=== PATIENT | female | born 1985 | race Caucasian/White ===

== ENCOUNTER 2020-10-27 05:33 | Inpatient (IN) | payer MEDICAID, OTHER ==
[2020-10-27] MEDS ORDERED: Citric Acid/Sodium Citrate Solution 30 ML Cup PO ONE (06:14)
[2020-10-27] MEDS ORDERED: Sodium Chloride 0.9% 10 ML Syringe FLUSH PRN (06:14)
[2020-10-27] MEDS ORDERED: Sodium Chloride 0.9% 10 ML SDV IV PRN (06:14)
[2020-10-27] MEDS ORDERED: Sodium Chloride 0.9% 2.5 ML Syringe FLUSH PRN (06:14)
[2020-10-27] MEDS ORDERED: ceFAZolin 2 GM in Premix Bag 1 BAG IV ONE (06:14)
[2020-10-27] MEDS ORDERED: Oxytocin/0.9 % Sodium Chloride 30 UNIT/500 ML BAG IV SCH (06:15)
[2020-10-27] MEDS ORDERED: Dexamethasone 4 MG/ML 5 ML MDV ONE (06:52)
[2020-10-27] MEDS ORDERED: Ondansetron 4 MG/2 ML SDV ONE (06:52)
[2020-10-27] MEDS ORDERED: Ketorolac 30 MG/ML SDV ONE (06:52)
[2020-10-27] MEDS ORDERED: Phenylephrine 1% 10 MG/ML SDV ONE (06:53)
[2020-10-27] MEDS ORDERED: Morphine PF 10 MG/10 ML SDV ONE (06:57)
[2020-10-27] MEDS: Lactated Ringers 1,000 ML IV SCH ×2 (07:10→07:34)
--- NOTE | 2020-10-27 07:31 | PCM.PREANE ---
Preanesthetic Assessment - Procedure Proposed Procedure: repeat c-sec - Anesthesia/Transfusion/Family Hx Anesthesia History: Prior Anesthesia Without Reaction Family History of Anesthesia Reaction: No Transfusion History: No Prior Transfusion(s) - Review of Systems General: No Symptoms Pulmonary: No Symptoms Cardiovascular: No Symptoms Gastrointestinal: No Symptoms Neurological: No Symptoms Other: Reports: None - Physical Assessment NPO Status Date: 10/26/20 NPO Status Time: 23:00 Height: 5 ft 3 in Weight: 75.296 kg ASA Class: 2 Mental Status: Alert & Oriented x3 Airway Class: Mallampati = 1 Dentition: Reports: Normal Dentition Thyro-Mental Finger Breadths: 3 Mouth Opening Finger Breadths: 3 ROM/Head Extension: Full Lungs: Clear to Auscultation, Normal Respiratory Effort Cardiovascular: Regular Rate, Regular Rhythm - Lab Values: Laboratory Last Values WBC 10.87 K/uL (4.0-11.0) 10/27/20 06:15 RBC 3.66 M/uL (4.30-5.90) L 10/27/20 06:15 Hgb 11.8 g/dL (12.0-16.0) L 10/27/20 06:15 Hct 35.2 % (36.0-46.0) L 10/27/20 06:15 MCV 96.2 fL (80.0-98.0) 10/27/20 06:15 MCH 32.2 pg (27.0-32.0) H 10/27/20 06:15 MCHC 33.5 g/dL (31.0-37.0) 10/27/20 06:15 RDW Std Deviation 44.6 fl (28.0-62.0) 10/27/20 06:15 RDW Coeff of Darrin 13 % (11.0-15.0) 10/27/20 06:15 Plt Count 251 K/uL (150-400) 10/27/20 06:15 MPV 10.50 fL (7.40-12.00) 10/27/20 06:15 Nucleated RBC % 0.0 /100WBC 10/27/20 06:15 Nucleated RBCs # 0 K/uL 10/27/20 06:15 Blood Type O POSITIVE 10/27/20 06:15 Antibody Screen NEGATIVE 10/27/20 06:15 - Allergies Allergies/Adverse Reactions: Allergies Allergy/AdvReac Type Severity Reaction Status Date / Time No Known Allergies Allergy Verified 10/24/20 14:15 - Blood Blood Available: Yes Product(s) Available: PRBC - Anesthesia Plan Pre-Op Medication Ordered: Antacids - Acknowledgements Anesthesia Type Planned: Spinal Pt an Appropriate Candidate for the Planned Anesthesia: Yes Alternatives and Risks of Anesthesia Discussed w Pt/Guardian: Yes Pt/Guardian Understands and Agrees with Anesthesia Plan: Yes PreAnesthesia Questionnaire HEENT History: Reports: None Cardiovascular History: Reports: None Respiratory History: Reports: Asthma Gastrointestinal History: Reports: Other (See Below) Other Gastrointestinal History: heartburn during Genitourinary History: Reports: None 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: Musculoskeletal History: Reports: None Neurological History: Reports: None Psychiatric History: Reports: None Endocrine/Metabolic History: Reports: None Hematologic History: Reports: None Immunologic History: Reports: None Oncologic (Cancer) History: Reports: None Dermatologic History: Reports: None - Past Surgical History Head Surgeries/Procedures: Reports: None HEENT Surgical History: Reports: None Cardiovascular Surgical History: Reports: None Respiratory Surgical History: Reports: None GI Surgical History: Reports: None Female Surgical History: Reports: Section Endocrine Surgical History: Reports: None Neurological Surgical History: Reports: None Musculoskeletal Surgical History: Reports: None Oncologic Surgical History: Reports: None Dermatological Surgical History: Reports: None - SUBSTANCE USE Tobacco Use Status *Q: Former Tobacco User Tobacco Use Within Last Twelve Months: No Second Hand Smoke Exposure: No Recreational Drug Use History: No - HOME MEDS Home Medications: Home Meds Albuterol [Take Home: Albuterol 18 GM, 1 INH Pack] 1 - 2 puff INH ASDIRECTED PRN 10/24/20 [History] Calcium Carbonate [Tums] 1 tab.chew CHEW ASDIRECTED PRN 10/24/20 [History] - CURRENT (IN HOUSE) MEDS Current Meds: Current Medications Oxytocin/Sodium Chloride (Oxytocin 30 Unit/500 Ml-Ns) 30 unit in 500 mls @ 250 mls/hr IV TITRATE [facility] Lactated Ringer's (Ringers, Lactated) 1,000 mls @ 500 mls/hr IV BOLUS [facility] Sodium Chloride (Saline Flush) 10 ml FLUSH ASDIRECTED PRN PRN Reason: Keep Vein Open Sodium Chloride (Saline Flush) 2.5 ml FLUSH ASDIRECTED PRN PRN Reason: Keep Vein Open Sodium Chloride (Normal Saline) 10 ml IV ASDIRECTED PRN PRN Reason: IV Use Discontinued Medications Citric Acid/Sodium Citrate (Bicitra Solution) 30 ml PO ONETIME ONE Stop: 10/27/20 06:15 Dexamethasone (Dexamethasone) Confirm Administered Dose 20 mg .ROUTE .STK-MED ONE Stop: 10/27/20 06:53 Cefazolin Sodium/Dextrose 2 gm (/ Premix) 50 mls @ 100 mls/hr IV ONETIME ONE Stop: 10/27/20 06:43 Ketorolac Tromethamine (Toradol) Confirm Administered Dose 30 mg .ROUTE .STK-MED ONE Stop: 10/27/20 06:53 Lidocaine HCl (Xylocaine-Mpf 1%) Confirm Administered Dose 5 ml .ROUTE .STK-MED ONE Stop: 10/27/20 07:04 Morphine Sulfate (Duramorph Pf) Confirm Administered Dose 10 mg .ROUTE .STK-MED ONE Stop: 10/27/20 06:58 Ondansetron HCl (Zofran) Confirm Administered Dose 4 mg .ROUTE .STK-MED ONE Stop: 10/27/20 06:53 Phenylephrine HCl (Geoffrey-Synephrine) Confirm Administered Dose 10 mg .ROUTE .STK- MED ONE Stop: 10/27/20 06:54
[2020-10-27] MEDS ORDERED: diphenhydrAMINE 50 MG/ML SDV IVPUSH PRN ×2 (07:32→09:13)
[2020-10-27] MEDS ORDERED: Naloxone 0.4 MG/ML Syringe IVPUSH PRN (07:32)
[2020-10-27] MEDS ORDERED: Nalbuphine 10 MG/1 ML Vial IVPUSH PRN (07:32)
[2020-10-27] MEDS ORDERED: Acetaminophen/oxyCODONE 325-5 MG Tab PO PRN ×3 (07:35→09:13)
[2020-10-27] MEDS ORDERED: fentaNYL 100 MCG/2 ML SDV IVPUSH PRN (09:06)
[2020-10-27] MEDS ORDERED: Bisacodyl 10 MG Supp RECTAL PRN (09:13)
[2020-10-27] MEDS ORDERED: Lanolin 100% Cream 7 GM Tube TOP PRN (09:13)
[2020-10-27] MEDS ORDERED: Tranexamic Acid 1,000 MG in Sodium Chloride 0.9% 100 ML IV PRN (09:13)
[2020-10-27] MEDS ORDERED: Ondansetron 4 MG/2 ML SDV IVPUSH PRN (09:13)
[2020-10-27] MEDS ORDERED: Oxytocin 10 Units/1 ML SDV IM PRN (09:13)
[2020-10-27] MEDS ORDERED: Methylergonovine 0.2 MG/1 ML Amp IM PRN (09:13)
[2020-10-27] MEDS ORDERED: Misoprostol 200 MCG Tab RECTAL PRN (09:13)
[2020-10-27] MEDS ORDERED: Lactated Ringers 1,000 ML IV SCH (09:15)
--- NOTE | 2020-10-27 09:26 | PCM.OPNOTE ---
- General Post-Op/Procedure Note Date of Surgery/Procedure: 10/27/20 Operative Procedure(s): 1. Gluteal skin tag removal. 2. Repeat lower transverse section Findings: Normal appearing male infant in cephalic presentation. Clear amniotic fluid. APGARs 8/9. Weight 3310 grams. Normal appearing uterus, fallopian tubes and ovaries. Three ~2mm flesh colored skin tags in right gluteal fold. One 3mm flesh colored skin tag in left gluteal fold. Pre Op Diagnosis: 1. TIUP at 39w1d. 2. Previous section x2. 3. Advanced maternal age. 4. Gluteal skin tags. 5. Asthma Post-Op Diagnosis: 1. TIUP at 39w1d. 2. Previous section x2. 3. Advanced maternal age. 4. Gluteal skin tags. 5. Asthma Anesthesia Technique: Spinal Primary Surgeon: Nohemy Limon Auto Cleaner: Damian Meier Pathology: Gluteal skin tags x4 Fluid Replacement, Intraop: 1,200 Output, Urine Amount: 100 (clear urine at end of procedure) EBL in mLs: 500 Complications: None known Condition: Good Free Text/Narrative:: Dictation #[id number]
--- NOTE | 2020-10-27 09:46 | PCM.POSTAN ---
POST ANESTHESIA ASSESSMENT - MENTAL STATUS Mental Status: Alert, Oriented - RESPIRATORY Respiratory Status: Respiratory Rate WNL, Airway Patent, O2 Saturation Stable - CARDIOVASCULAR CV Status: Pulse Rate WNL, Blood Pressure Stable - GASTROINTESTINAL GI Status: No Symptoms - PAIN Pain Score: 0 - POST OP HYDRATION Hydration Status: Adequate & Stable
[2020-10-27] MEDS: Ketorolac 30 MG/ML SDV IVPUSH SCH ×3 (16:35→22:11)
[2020-10-27] MEDS: Docusate Sodium 100 MG Cap PO SCH (22:13)
--- NOTE | 2020-10-27 22:46 | OR ---
SURGEON: NOHEMY HANKINS MD DATE OF PROCEDURE: 10/27/2020 PREOPERATIVE DIAGNOSES: 1. Term intrauterine at 39 weeks and 1 day gestation. 2. Previous section x2. 3. Advanced maternal age. 4. Gluteal skin tags. 5. Asthma. POSTOPERATIVE DIAGNOSES: 1. Term intrauterine at 39 weeks and 1 day gestation. 2. Previous section x2. 3. Advanced maternal age. 4. Gluteal skin tags. 5. Asthma. PROCEDURE PERFORMED: 1. Gluteal skin tag removal. 2. Repeat lower transverse section. PRIMARY SURGEON: Nohemy Hankins MD EDGE STAINER: Dr. Damian Meier. ANESTHESIA: Spinal-epidural. COMPLICATIONS: None known. ESTIMATED BLOOD LOSS: 500 mL. INTRAVENOUS FLUIDS: 1200 mL of crystalloid. URINE OUTPUT: 100 mL of clear urine at the end of procedure. INDICATIONS: A 35-year-old 6, para 2-0-3-2 at 39 weeks and 1 day gestation with previous section x2. FINDINGS: A normal-appearing male , cephalic presentation, and clear amniotic fluid. scores of 8 and 9. Weight 2310 g. Normal-appearing uterus, fallopian tubes, and ovaries. Three approximately 2 mm flesh-colored skin tags within the right gluteal fold. One 3 mm flesh-colored skin tag in the left gluteal fold. DESCRIPTION OF PROCEDURE: The patient was taken to the operating room where epidural anesthesia was found to be adequate. She was then placed in the dorsal supine position with a leftward tilt. Her legs were then frog-legged and her gluteal region was then prepped with Betadine. Approximately 5 mL of 1% lidocaine with epinephrine was injected beneath the right and left gluteal skin tags. An 11 blade was then used to remove the skin tags at the skin surface. Hemostasis was achieved with silver nitrate. The skin tags were sent off to pathology. A Juárez catheter was then placed, and her legs were straightened. She was then prepped and draped in the normal sterile fashion. A skin incision was made with scalpel and carried out to the underlying layer of fascia, which was incised in the midline. Fascial incision was then extended laterally with Garcia scissors bilaterally. The superior aspect of the fascial incision was then grasped with Jackie clamps, elevated, and dissected off the rectus muscles with Mayos. The inferior aspect of the fascial incision was then grasped with Kochers and in a likewise manner was elevated and dissected off with Mayoancelmo. The peritoneum was then entered digitally and extended with good visualization of bladder. The Carlos O was then inserted without difficulty. Vesicouterine peritoneum was identified, grasped with pickups, and entered sharply with Metzenbaum scissors. The bladder flap was then created digitally. Uterine incision was then created in a transverse fashion in the lower uterine segment with a scalpel and extended digitally. The amniotic sac was AROM'd with an Allis clamp. Clear fluid was then noted. Infant's head delivered atraumatically. Nose and mouth suctioned with bulb. After one minute, cord was clamped and cut. Handed off to waiting nursing staff. Arterial, venous, and cord blood gases were then obtained. The placenta was then expressed and the uterus exteriorized, and the abdomen cleared of all clots and debris. The uterine incision was then repaired in a running locked fashion with 0 Monocryl. Excellent hemostasis was noted. The uterus was then returned to the abdomen. Gutters cleared of all clots and debris. The peritoneum was then closed in a running fashion with 3-0 Vicryl. The fascia was then closed with 0 Vicryl in a running fashion. The incision was irrigated. Hemostasis assured. The skin was closed with 3-0 Vicryl on a Gilberto needle. Sponge, lap, and needle count were correct x2. Prophylactic antibiotics were given prior to procedure. Patient tolerated the procedure well and was taken to the room for recovery in stable condition. EDILSON / DELBERT /[id number] JORDON
[2020-10-28] MEDS: Ketorolac 30 MG/ML SDV IVPUSH SCH ×2 (03:42→09:45)
[2020-10-28] MEDS ORDERED: diphenhydrAMINE 50 MG/ML SDV IVPUSH PRN (07:35)
[2020-10-28] MEDS: Acetaminophen/oxyCODONE 325-5 MG Tab PO PRN ×3 (09:44→19:37)
[2020-10-28] MEDS: Docusate Sodium 100 MG Cap PO SCH ×3 (09:44→20:32)
--- NOTE | 2020-10-28 11:22 | PCM.PNPP ---
- General Info Date of Service: 10/28/20 Subjective Update: 35yo P3 s/p tertiary , PPD 1 , she denies any complains she is ambulating , voiding and tolerating regular diet Dressing was soaked but stable and not spreading h/h : Functional Status: Reports: Pain Controlled, Tolerating Diet, Ambulating, Incentive Spirometry - Review of Systems General: Reports: No Symptoms, Malaise HEENT: Reports: No Symptoms Pulmonary: Reports: No Symptoms Cardiovascular: Reports: No Symptoms Gastrointestinal: Reports: No Symptoms Genitourinary: Reports: No Symptoms Musculoskeletal: Reports: No Symptoms Skin: Reports: No Symptoms Neurological: Reports: No Symptoms Psychiatric: Reports: No Symptoms - General Info Date of Service: 10/28/20 - Patient Data Vital Signs - Most Recent: Last Vital Signs Temp 36.1 C 10/28/20 07:47 Pulse 83 10/28/20 07:47 Resp 17 10/28/20 07:47 BP 114/56 L 10/28/20 07:47 Pulse Ox 96 10/28/20 07:47 Weight - Most Recent: 75.296 kg I&O - Last 24 Hours: Intake & Output 10/27/20 10/28/20 10/28/20 22:59 06:59 14:59 Intake Total 900 Output Total 700 700 Balance -700 200 Lab Results - Last 24 Hours: Laboratory Results - last 24 hr 10/28/20 Range/Units 06:33 Hgb 9.5 L (12.0-16.0) g/dL Hct 28.4 L (36.0-46.0) % Med Orders - Current: Current Medications Bisacodyl (Dulcolax) 10 mg RECTAL ONETIME PRN PRN Reason: Constipation Diphenhydramine HCl (Benadryl) 25 mg IVPUSH Q6H PRN PRN Reason: Itching or Nausea Docusate Sodium (Colace) 100 mg PO BID [facility] Last Admin: 10/28/20 09:44 Dose: 100 mg Documented by: Emollient Ointment (Lansinoh Hpa) 0 gm TOP ASDIRECTED PRN PRN Reason: Sore Nipples Fentanyl (Sublimaze) 25 mcg IVPUSH Q30M PRN PRN Reason: Pain Oxytocin/Sodium Chloride (Oxytocin 30 Unit/500 Ml-Ns) 30 unit in 500 mls @ 250 mls/hr IV TITRATE [facility] Lactated Ringer's (Ringers, Lactated) 1,000 mls @ 500 mls/hr IV BOLUS [facility] Last Admin: 10/27/20 07:34 Dose: 999 mls/hr Documented by: Lactated Ringer's (Ringers, Lactated) 1,000 mls @ 125 mls/hr IV ASDIRECTED [facility] Last Admin: 10/27/20 10:07 Dose: 125 mls/hr Documented by: Tranexamic Acid 1,000 mg/ (Sodium Chloride) 110 mls @ 660 mls/hr IV ONETIME PRN PRN Reason: Bleeding Ibuprofen (Motrin) 800 mg PO Q8H PRN PRN Reason: mild pain or fever Methylergonovine Maleate (Methergine) 0.2 mg IM ONETIME PRN PRN Reason: Excessive Vaginal Bleeding Misoprostol (Cytotec) 1,000 mcg RECTAL ONETIME PRN PRN Reason: excessive bleeding Ondansetron HCl (Zofran) 4 mg IVPUSH Q4H PRN PRN Reason: Nausea/Vomiting Oxycodone/Acetaminophen (Percocet 325-5 Mg) 1 tab PO Q4H PRN PRN Reason: Pain (moderate 4-6) Last Admin: 10/28/20 09:44 Dose: 1 tab Documented by: Oxycodone/Acetaminophen (Percocet 325-5 Mg) 2 tab PO Q4H PRN PRN Reason: Pain (severe 7-10) Oxytocin (Pitocin) 10 unit IM ASDIRECTED PRN PRN Reason: Excessive Vaginal Bleeding Sodium Chloride (Saline Flush) 10 ml FLUSH ASDIRECTED PRN PRN Reason: Keep Vein Open Sodium Chloride (Saline Flush) 2.5 ml FLUSH ASDIRECTED PRN PRN Reason: Keep Vein Open Sodium Chloride (Normal Saline) 10 ml IV ASDIRECTED PRN PRN Reason: IV Use Discontinued Medications Citric Acid/Sodium Citrate (Bicitra Solution) 30 ml PO ONETIME ONE Stop: 10/27/20 06:15 Last Admin: 10/27/20 07:48 Dose: 30 ml Documented by: Dexamethasone (Dexamethasone) Confirm Administered Dose 20 mg .ROUTE .STK-MED ONE Stop: 10/27/20 06:53 Diphenhydramine HCl (Benadryl) 25 mg IVPUSH Q4H PRN PRN Reason: Itching Stop: 10/28/20 07:34 Last Admin: 10/27/20 12:05 Dose: 25 mg Documented by: Diphenhydramine HCl (Benadryl) 25 mg IVPUSH Q6H PRN PRN Reason: Itching or Nausea Cefazolin Sodium/Dextrose 2 gm (/ Premix) 50 mls @ 100 mls/hr IV ONETIME ONE Stop: 10/27/20 06:43 Last Admin: 10/27/20 17:46 Dose: Not Given Documented by: Cefazolin Sodium/Dextrose (Ancef 1 Gm/50 Ml) Confirm Administered Dose 100 mls @ as directed .ROUTE .STK-MED ONE Stop: 10/27/20 07:52 Ketorolac Tromethamine (Toradol) Confirm Administered Dose 30 mg .ROUTE .STK-MED ONE Stop: 10/27/20 06:53 Ketorolac Tromethamine (Toradol) 30 mg IVPUSH Q6H [facility]NET[facility] Stop: 10/28/20 09:16 Last Admin: 10/28/20 09:45 Dose: 30 mg Documented by: Lidocaine HCl (Xylocaine-Mpf 1%) Confirm Administered Dose 5 ml .ROUTE .STK-MED ONE Stop: 10/27/20 07:04 Morphine Sulfate (Duramorph Pf) Confirm Administered Dose 10 mg .ROUTE .STK-MED ONE Stop: 10/27/20 06:58 Nalbuphine HCl (Nubain) 5 mg IVPUSH Q3H PRN PRN Reason: Pruritis Stop: 10/28/20 07:34 Last Admin: 10/27/20 23:59 Dose: 5 mg Documented by: Naloxone HCl (Narcan) 0.1 mg IVPUSH ONETIME PRN PRN Reason: Other Stop: 10/28/20 07:34 Ondansetron HCl (Zofran) Confirm Administered Dose 4 mg .ROUTE .STK-MED ONE Stop: 10/27/20 06:53 Oxycodone/Acetaminophen (Percocet 325-5 Mg) 1 - 2 tab PO Q6H PRN PRN Reason: Pain Stop: 10/29/20 14:00 Oxycodone/Acetaminophen (Percocet 325-5 Mg) 1 tab PO Q4H PRN PRN Reason: Pain (moderate 4-6) Oxycodone/Acetaminophen (Percocet 325-5 Mg) 2 tab PO Q4H PRN PRN Reason: Pain (moderate 4-6) Phenylephrine HCl (Geoffrey-Synephrine) Confirm Administered Dose 10 mg .ROUTE .STK- MED ONE Stop: 10/27/20 06:54 - Interaction Infant Disposition, : Sar[place] in Room with Family Feeding: Continues to Breastfeed Support Person: Significant Other - Recovery Exam Fundal Tone: Firm Fundal Level: 2 Fingerbreadths Below Umbilicus Fundal Placement: Midline Lochia Amount: Scant Lochia Color: Rubra/Red Bladder Status: Indwelling Catheter in Place Urinary Elimination: Indwelling Catheter - Exam General: Alert HEENT: Pupils Equal Neck: Supple Lungs: Clear to Auscultation Cardiovascular: Regular Rate, Regular Rhythm GI/Abdominal Exam: Normal Bowel Sounds Wound/Incisions: Dressing Dry and Intact (Dry but has some markings which is stable ) - Problem List & Annotations (1) delivery delivered SNOMED Code(s): 381269355 Code(s): O82 - ENCOUNTER FOR DELIVERY WITHOUT INDICATION Status: Acute Current Visit: Yes - Problem List Review Problem List Initiated/Reviewed/Updated: Yes - Assessment Assessment:: 35yo P3 s/p PPD 1 , stable , Anemia , VSS - stable - Plan Plan:: Routine care Pain control as needed Incentive spirometry [place] Iron for anemia Discharge home today
--- NOTE | 2020-10-28 11:43 | PCM48HPAN ---
Post Anesthesia Note - EVALUATION WITHIN 48HRS OF ANESTHETIC Vital Signs in Normal Range: Yes Patient Participated in Evaluation: Yes Respiratory Function Stable: Yes Airway Patent: Yes Cardiovascular Function Stable: Yes Hydration Status Stable: Yes Pain Control Satisfactory: Yes (Some soreness. Alangesics adequate.) Nausea and Vomiting Control Satisfactory: Yes Mental Status Recovered: Yes Vital Signs: Last Vital Signs Temp 36.1 C 10/28/20 07:47 Pulse 83 10/28/20 07:47 Resp 17 10/28/20 07:47 BP 114/56 L 10/28/20 07:47 Pulse Ox 96 10/28/20 07:47 - COMMENTS/OBSERVATIONS Free Text/Narrative:: Doing well.
[2020-10-28] MEDS: Iron Polysaccharides Complex 150 MG Cap PO SCH (15:55)
[2020-10-28] MEDS: Ibuprofen 800 MG Tab PO PRN (17:48)
[2020-10-29] MEDS: Ibuprofen 800 MG Tab PO PRN ×2 (00:58→11:54)
[2020-10-29] MEDS: Acetaminophen/oxyCODONE 325-5 MG Tab PO PRN ×3 (04:03→14:29)
[2020-10-29] MEDS: Docusate Sodium 100 MG Cap PO SCH ×2 (09:16→09:22)
[2020-10-29] MEDS: Iron Polysaccharides Complex 150 MG Cap PO SCH (09:16)
--- NOTE | 2020-10-29 09:24 | PCM.PNPP ---
- General Info Date of Service: 10/29/20 Subjective Update: 35yo P3 s/p tertiary , PPD 2 , she denies any complains she is ambulating , voiding and tolerating regular diet h/h : Functional Status: Reports: Pain Controlled, Tolerating Diet, Ambulating, Urinating - Review of Systems General: Reports: No Symptoms HEENT: Reports: No Symptoms Pulmonary: Reports: No Symptoms Cardiovascular: Reports: No Symptoms Gastrointestinal: Reports: No Symptoms Genitourinary: Reports: No Symptoms Musculoskeletal: Reports: No Symptoms Skin: Reports: No Symptoms Neurological: Reports: No Symptoms Psychiatric: Reports: No Symptoms - General Info Date of Service: 10/29/20 - Patient Data Vital Signs - Most Recent: Last Vital Signs Temp 36.6 C 10/29/20 08:54 Pulse 71 10/29/20 08:54 Resp 18 10/29/20 08:54 BP 117/74 10/29/20 08:54 Pulse Ox 98 10/29/20 08:54 Weight - Most Recent: 75.296 kg Med Orders - Current: Current Medications Bisacodyl (Dulcolax) 10 mg RECTAL ONETIME PRN PRN Reason: Constipation Diphenhydramine HCl (Benadryl) 25 mg IVPUSH Q6H PRN PRN Reason: Itching or Nausea Docusate Sodium (Colace) 100 mg PO BID [facility] Last Admin: 10/29/20 09:16 Dose: 100 mg Documented by: Docusate Sodium (Colace) 100 mg PO DAILY [facility] Last Admin: 10/29/20 09:22 Dose: Not Given Documented by: Emollient Ointment (Lansinoh Hpa) 0 gm TOP ASDIRECTED PRN PRN Reason: Sore Nipples Fentanyl (Sublimaze) 25 mcg IVPUSH Q30M PRN PRN Reason: Pain Oxytocin/Sodium Chloride (Oxytocin 30 Unit/500 Ml-Ns) 30 unit in 500 mls @ 250 mls/hr IV TITRATE [facility] Lactated Ringer's (Ringers, Lactated) 1,000 mls @ 500 mls/hr IV BOLUS [facility] Last Admin: 10/27/20 07:34 Dose: 999 mls/hr Documented by: Lactated Ringer's (Ringers, Lactated) 1,000 mls @ 125 mls/hr IV ASDIRECTED [facility] Last Admin: 10/27/20 10:07 Dose: 125 mls/hr Documented by: Tranexamic Acid 1,000 mg/ (Sodium Chloride) 110 mls @ 660 mls/hr IV ONETIME PRN PRN Reason: Bleeding Ibuprofen (Motrin) 800 mg PO Q8H PRN PRN Reason: mild pain or fever Last Admin: 10/29/20 00:58 Dose: 800 mg Documented by: Methylergonovine Maleate (Methergine) 0.2 mg IM ONETIME PRN PRN Reason: Excessive Vaginal Bleeding Misoprostol (Cytotec) 1,000 mcg RECTAL ONETIME PRN PRN Reason: excessive bleeding Ondansetron HCl (Zofran) 4 mg IVPUSH Q4H PRN PRN Reason: Nausea/Vomiting Oxycodone/Acetaminophen (Percocet 325-5 Mg) 1 tab PO Q4H PRN PRN Reason: Pain (moderate 4-6) Last Admin: 10/29/20 09:20 Dose: 1 tab Documented by: Oxycodone/Acetaminophen (Percocet 325-5 Mg) 2 tab PO Q4H PRN PRN Reason: Pain (severe 7-10) Last Admin: 10/29/20 04:03 Dose: 2 tab Documented by: Oxytocin (Pitocin) 10 unit IM ASDIRECTED PRN PRN Reason: Excessive Vaginal Bleeding Polysaccharide Iron Complex (Ferrex 150) 150 mg PO DAILY [facility] Last Admin: 10/29/20 09:16 Dose: 150 mg Documented by: Sodium Chloride (Saline Flush) 10 ml FLUSH ASDIRECTED PRN PRN Reason: Keep Vein Open Sodium Chloride (Saline Flush) 2.5 ml FLUSH ASDIRECTED PRN PRN Reason: Keep Vein Open Sodium Chloride (Normal Saline) 10 ml IV ASDIRECTED PRN PRN Reason: IV Use Discontinued Medications Citric Acid/Sodium Citrate (Bicitra Solution) 30 ml PO ONETIME ONE Stop: 10/27/20 06:15 Last Admin: 10/27/20 07:48 Dose: 30 ml Documented by: Dexamethasone (Dexamethasone) Confirm Administered Dose 20 mg .ROUTE .STK-MED ONE Stop: 10/27/20 06:53 Diphenhydramine HCl (Benadryl) 25 mg IVPUSH Q4H PRN PRN Reason: Itching Stop: 10/28/20 07:34 Last Admin: 10/27/20 12:05 Dose: 25 mg Documented by: Diphenhydramine HCl (Benadryl) 25 mg IVPUSH Q6H PRN PRN Reason: Itching or Nausea Cefazolin Sodium/Dextrose 2 gm (/ Premix) 50 mls @ 100 mls/hr IV ONETIME ONE Stop: 10/27/20 06:43 Last Admin: 10/27/20 17:46 Dose: Not Given Documented by: Cefazolin Sodium/Dextrose (Ancef 1 Gm/50 Ml) Confirm Administered Dose 100 mls @ as directed .ROUTE .STK-MED ONE Stop: 10/27/20 07:52 Ketorolac Tromethamine (Toradol) Confirm Administered Dose 30 mg .ROUTE .STK-MED ONE Stop: 10/27/20 06:53 Ketorolac Tromethamine (Toradol) 30 mg IVPUSH Q6H [facility]NET[facility] Stop: 10/28/20 09:16 Last Admin: 10/28/20 09:45 Dose: 30 mg Documented by: Lidocaine HCl (Xylocaine-Mpf 1%) Confirm Administered Dose 5 ml .ROUTE .STK-MED ONE Stop: 10/27/20 07:04 Morphine Sulfate (Duramorph Pf) Confirm Administered Dose 10 mg .ROUTE .STK-MED ONE Stop: 10/27/20 06:58 Nalbuphine HCl (Nubain) 5 mg IVPUSH Q3H PRN PRN Reason: Pruritis Stop: 10/28/20 07:34 Last Admin: 10/27/20 23:59 Dose: 5 mg Documented by: Naloxone HCl (Narcan) 0.1 mg IVPUSH ONETIME PRN PRN Reason: Other Stop: 10/28/20 07:34 Ondansetron HCl (Zofran) Confirm Administered Dose 4 mg .ROUTE .STK-MED ONE Stop: 10/27/20 06:53 Oxycodone/Acetaminophen (Percocet 325-5 Mg) 1 - 2 tab PO Q6H PRN PRN Reason: Pain Stop: 10/29/20 14:00 Oxycodone/Acetaminophen (Percocet 325-5 Mg) 1 tab PO Q4H PRN PRN Reason: Pain (moderate 4-6) Oxycodone/Acetaminophen (Percocet 325-5 Mg) 2 tab PO Q4H PRN PRN Reason: Pain (moderate 4-6) Phenylephrine HCl (Geoffrey-Synephrine) Confirm Administered Dose 10 mg .ROUTE .STK-MED ONE Stop: 10/27/20 06:54 - Infant Interaction Disposition, : in Room with Family Feeding: Continues to Breastfeed Support Person: Significant Other - Recovery Exam Fundal Tone: Firm Fundal Level: 2 Fingerbreadths Below Umbilicus Fundal Placement: Midline Lochia Amount: Scant Lochia Color: Rubra/Red Perineum Description: Intact, Minimal Bruising/Swelling Episiotomy/Laceration: None Bladder Status: Voiding Urinary Elimination: Voided - Exam General: Alert HEENT: Pupils Equal Neck: Supple Lungs: Clear to Auscultation, Normal Respiratory Effort Cardiovascular: Regular Rate, Regular Rhythm Extremities: Normal Inspection Wound/Incisions: Healing Well, No Drainage Neurological: No New Focal Deficit Psy/Mental Status: Alert - Problem List & Annotations (1) delivery delivered SNOMED Code(s): 594172821 Code(s): O82 - ENCOUNTER FOR DELIVERY WITHOUT INDICATION Status: Acute Current Visit: Yes - Problem List Review Problem List Initiated/Reviewed/Updated: Yes - My Orders Last 24 Hours: My Active Orders 10/28/20 11:30 Docusate Sodium [Colace] 100 mg PO DAILY [place] Polysaccharides Complex [Ferrex 150] 150 mg PO DAILY - Assessment Assessment:: 35yo P3 s/p PPD 2 , stable , Anemia , VSS - stable - Plan Plan:: Routine care Pain control as needed Incentive spirometry [place] Iron for anemia Discharge home today
== END 2020-10-29 18:25 | disposition home or self-care (01) | DRG 788 ==
LOC: MW.OB 05:33
PROVIDERS: ADMIT Obstetrics & Gynecology; ATTEND Obstetrics & Gynecology
PROC: 10D00Z1 Extraction of Products of Conception, Low, Open Approach (ICD-10-PCS; principal; 2020-10-27)
PROC: 0UBMXZZ Excision of Vulva, External Approach (ICD-10-PCS; 2020-10-27)
DX: O34.211 Maternal care for low transverse scar from previous cesarean delivery (principal); Z37.0 Single live birth; O99.52 Diseases of the respiratory system complicating childbirth; J45.909 Unspecified asthma, uncomplicated; O99.713 Diseases of the skin and subcutaneous tissue complicating pregnancy, third trimester; L91.8 Other hypertrophic disorders of the skin; O99.02 Anemia complicating childbirth; D64.9 Anemia, unspecified; Z3A.39 39 weeks gestation of pregnancy
CPT/HCPCS: 01961; 36415; 59025; 85014; 85018; 85027; 86592; 86850; 86900; 86901; 88305; A9270-GY; J0690; J1100; J1200; J1885; J2270; J2300; J2370; J2405; J7120

== ENCOUNTER 2021-03-20 12:47 | Emergency (ER) | payer MEDICAID ==
--- NOTE | 2021-03-20 13:43 | PCM.EKG ---
#1 Interpretation EKG Interpretation Comments: EKG: As interpreted by ER physician: Malik: Nonspecific ST-T wave abnormalities Normal axis No evidence of ST elevation [place] Normal sinus rhythm heart rate of 52
[2021-03-20] MEDS ORDERED: Ketorolac 15 MG/ML SDV IVPUSH ONE (13:48)
[2021-03-20] MEDS ORDERED: Sodium Chloride 0.9% 10 ML Syringe FLUSH PRN (13:48)
[2021-03-20] MEDS ORDERED: Sodium Chloride 0.9% 2.5 ML Syringe FLUSH PRN (13:48)
--- NOTE | 2021-03-20 15:00 | CR ---
Indication: Chest pain Comparison: None available. Technique: PA and Lateral views chest Findings: There is no focal consolidation, effusion, or pneumothorax. The cardiomediastinal silhouette is within normal limits. The bony thorax is grossly intact. Impression: No acute cardiopulmonary abnormality. Dictated by Marcial Farley MD @ 03/20/2021 2:59:[address] Marcial Farley @ Mar 20 2021 2:59PM
[2021-03-20 15:02] LABS: BLOOD UREA NITROGEN,BUN 14 mg/dL (7.0-18.0); CARBON DIOXIDE,CO2 24.8 mmol/L (21.0-32.0); CHLORIDE,CL 105 mmol/L (98-107); GLUCOSE RANDOM 87 mg/dL (74-106); SODIUM,NA 141 mmol/L (136-145)
--- NOTE | 2021-03-20 15:22 | EDM.PDOC ---
ED HPI GENERAL MEDICAL PROBLEM - General Chief Complaint: General Stated Complaint: CHEST PAIN Time Seen by Provider: 03/20/21 13:43 - History of Present Illness INITIAL COMMENTS - FREE TEXT/NARRATIVE: HISTORY AND PHYSICAL: History of present illness: This is a 35-year-old female who presents ER today complaining of sharp pain to her midsternal region x1 day with that increases with deep inspiration and cough. Patient denies any recent fevers, shakes, chills, nausea, vomiting, diarrhea, dysuria, frequency, urgency. Patient candaces has a slight nonproductive cough. Patient denies any diaphoresis, pain rating to her arms or back, shortness of breath. Patient denies any exertional component to the pain. Patient denies any history of hypertension, diabetes, liver, lung, kidney problems or prior cardiac history. Patient denies any family history of CAD. Patient has any tobacco alcohol or drugs. Review of systems: As per history of present illness and below otherwise all systems reviewed and negative. Past medical history: As per history of present illness and as reviewed below otherwise noncontributory. Surgical history: As per history of present illness and as reviewed below otherwise noncontributory. Social history: No reported history of drug abuse. Family history: As per history of present illness and as reviewed below otherwise noncontributory. Physical exam: This patient was seen and evaluated during the 2019 SARS-CoV-2 novel coronavirus pandemic period. Community viral transmission is ongoing at time of this encounter and the emergency department is operating under pandemic response procedures. Constitutional: Patient is oriented to person, place, and time. Appears well- developed and well-nourished. No distress. HEENT: Moist mucous membranes Head: Normocephalic and atraumatic Eyes: Right eye exhibits no discharge. Left eye exhibits no discharge. No scleral icterus Neck: Normal range of motion. No tracheal deviation present. Cardiovascular: Normal rate and regular rhythm. Pulmonary: Effort normal, no respiratory distress. Abdominal: No distention Musculoskeletal: Normal range of motion Neurologic: Alert and oriented to person, place and time. Skin: [place], warm and dry. Psychiatric: Normal mood and affect. Behavior is normal. Judgment and thought content normal. Nursing note and vital signs have been reviewed Patient ER physical exam significant for reproducible tenderness palpation to her mid sternum. Diagnostics: Chest Xray: Normal cardiac silhouette No infiltrates or effusions identified. No PTX No evidence of acute bony fracture. As interpreted by ER MD: [employer]: Toradol 15 mg IV Assessment and plan: 35-year-old female who presents ER today with sharp reproducible midsternal chest pain. Patient's labs are all within normal limits. Patient has a normal D-dimer and troponin. Patient's EKG is unremarkable. Patient has been given Toradol in ED with significant improvement in her symptoms. Patient's heart score is 0. Reassessment at the time of disposition demonstrates that the patient is in no acute distress. The patient has remained stable throughout the entire ED visit and is without objective evidence for acute process requiring urgent intervention or hospitalization. The patient is stable for discharge, counseling is provided as documented above, discussed symptomatic treatment and specific conditions for return. I have spoken with the patient/caregiver and discussed todays findings, in addition to providing specific details for the plan of care. Questions are answered and there is agreement with the plan. Definitive disposition and diagnosis as appropriate pending reevaluation and review of above. Chest Pain Score (Numeric/FACES): 1 - Related Data Allergies Allergy/AdvReac Type Severity Reaction Status Date / Time No Known Allergies Allergy Verified 03/20/21 13:33 Home Meds: Home Meds Albuterol [Take Home: Albuterol 18 GM, 1 INH Pack] 1 - 2 puff INH ASDIRECTED PRN 10/24/20 [History] Naproxen [Naprosyn] 500 mg PO Q12HR PRN #30 tablet 03/20/21 [Rx] Past Medical History - Past Health History Medical/Surgical History: Denies Medical/Surgical History HEENT History: Reports: None Cardiovascular History: Reports: None Respiratory History: Reports: Asthma Gastrointestinal History: Reports: Other (See Below) Other Gastrointestinal History: heartburn during Genitourinary History: Reports: None 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: Musculoskeletal History: Reports: None Neurological History: Reports: None Psychiatric History: Reports: Anxiety Endocrine/Metabolic History: Reports: None Hematologic History: Reports: None Immunologic History: Reports: None Oncologic (Cancer) History: Reports: None Dermatologic History: Reports: None - Infectious Disease History Infectious Disease History: Reports: None - Past Surgical History Head Surgeries/Procedures: Reports: None HEENT Surgical History: Reports: None Cardiovascular Surgical History: Reports: None Respiratory Surgical History: Reports: None GI Surgical History: Reports: None Female Surgical History: Reports: Section Endocrine Surgical History: Reports: None Neurological Surgical History: Reports: None Musculoskeletal Surgical History: Reports: None Oncologic Surgical History: Reports: None Dermatological Surgical History: Reports: None Social & Family History - Family History Family Medical History: No Pertinent Family History - Tobacco Use Tobacco Use Status *Q: Never Tobacco User - Caffeine Use Caffeine Use: Reports: None - Recreational Drug Use Recreational Drug Use: No ED ROS GENERAL - Review of Systems Review Of Systems: See Below ED EXAM, GENERAL - Physical Exam Exam: See Below Course - Vital Signs Last Recorded V/S: Last Vital Signs Temp 97.7 F 03/20/21 13:34 Pulse 55 L 03/20/21 13:34 Resp 16 03/20/21 13:34 BP 119/76 03/20/21 13:34 Pulse Ox 99 03/20/21 13:34 - Orders/Labs/Meds Orders: Active Orders 24 hr Category Date Time Status EKG Documentation Completion [RC] AM Care 03/20/21 13:48 Active Sodium Chloride 0.9% [Saline Flush] Med 03/20/21 13:48 Active 10 ml FLUSH ASDIRECTED PRN Sodium Chloride 0.9% [Saline Flush] Med 03/20/21 13:48 Active 2.5 ml FLUSH ASDIRECTED PRN Saline Lock Insert [OM.PC] Stat Oth 03/20/21 13:48 Ordered Medication Orders Sodium Chloride (Sodium Chloride 0.9% 10 Ml Syringe) 10 ml FLUSH ASDIRECTED PRN PRN Reason: Keep Vein Open Last Admin: 03/20/21 13:56 Dose: 10 ml Documented by: KIANA Sodium Chloride (Sodium Chloride 0.9% 2.5 Ml Syringe) 2.5 ml FLUSH ASDIRECTED PRN PRN Reason: Keep Vein Open Last Admin: 03/20/21 13:56 Dose: 2.5 ml Documented by: KIANA Labs: Laboratory Tests 03/20/21 03/20/21 03/20/21 Range/Units 14:10 14:10 14:10 WBC 6.60 (4.0-11.0) K/uL RBC 4.27 L (4.30-5.90) M/uL Hgb 12.8 (12.0-16.0) g/dL Hct 37.9 (36.0-46.0) % MCV 88.8 (80.0-98.0) fL MCH 30.0 (27.0-32.0) pg MCHC 33.8 (31.0-37.0) g/dL RDW Std Deviation 42.8 (28.0-62.0) fl RDW Coeff of Darrin 13 (11.0-15.0) % Plt Count 291 (150-400) K/uL MPV 10.00 (7.40-12.00) fL Neut % (Auto) 49.4 (48.0-80.0) % Lymph % (Auto) 39.5 (16.0-40.0) % [place] % (Auto) 6.4 (0.0-15.0) % Eos % (Auto) 3.9 (0.0-7.0) % Baso % (Auto) 0.8 (0.0-1.5) % Neut # (Auto) 3.3 (1.4-5.7) K/uL Lymph # (Auto) 2.6 H (0.6-2.4) K/uL [place] # (Auto) 0.4 (0.0-0.8) K/uL Eos # (Auto) 0.3 (0.0-0.7) K/uL Baso # (Auto) 0.1 (0.0-0.1) K/uL Nucleated RBC % 0.0 /100WBC Nucleated RBCs # 0 K/uL D-Dimer, Quantitative < 0.19 (0.0-0.50) mg/L FEU Sodium 141 (136-145) mmol/L Potassium 4.0 (3.5-5.1) mmol/L Chloride 105 (98-107) mmol/L Carbon Dioxide 24.8 (21.0-32.0) mmol/L BUN 14 (7.0-18.0) mg/dL Creatinine 0.9 (0.6-1.0) mg/dL Est Cr Clr Drug Dosing 71.48 mL/min Estimated GFR (MDRD) > 60.0 ml/min Glucose 87 (74-106) mg/dL Calcium 9.2 (8.5-10.1) mg/dL Total Bilirubin 0.9 (0.2-1.0) mg/dL AST 17 (15-37) IU/L ALT 24 (14-63) IU/L Alkaline Phosphatase 79 (46-116) U/L Troponin I < 0.050 (0.000-0.056) ng/mL Total Protein 7.2 (6.4-8.2) g/dL Albumin 4.1 (3.4-5.0) g/dL Globulin 3.1 (2.6-4.0) g/dL Albumin/Globulin Ratio 1.3 (0.9-1.6) Meds: Medications Generic Name Dose Route Start Last Admin Trade Name Freq PRN Reason Stop Dose Admin Sodium Chloride 10 ml 03/20/21 13:48 03/20/21 13:56 Sodium Chloride 0.9% 10 Ml Syringe FLUSH 10 ml ASDIRECTED PRN Administration Keep Vein Open Sodium Chloride 2.5 ml 03/20/21 13:48 03/20/21 13:56 Sodium Chloride 0.9% 2.5 Ml Syringe FLUSH 2.5 ml ASDIRECTED PRN Administration Keep Vein Open Discontinued Medications Generic Name Dose Route Start Last Admin Trade Name Freq PRN Reason Stop Dose Admin Ketorolac Tromethamine 15 mg 03/20/21 13:48 03/20/21 13:56 Ketorolac 15 Mg/Ml Sdv IVPUSH 03/20/21 13:49 15 mg ONETIME ONE Administration Departure - Departure Time of Disposition: 15:20 Disposition: Home, Self-Care 01 Condition: Good Clinical Impression: Chest wall pain - Discharge Information Instructions: Chest Wall Pain, [id number] Referrals: Chelsie Presley MD [Primary Care Provider] - Forms: ED Department Discharge Additional Instructions: You are seen and evaluated in ER today secondary pain in your chest. This appears to be most likely mechanical in nature. You will be given a prescription for Naprosyn and instructed to follow-up with your family doctor this week. The following information is given to patients seen in the emergency department who are being discharged to home. This information is to outline your options for follow-up care. We provide all patients seen in our emergency department with a follow-up referral. The need for follow-up, as well as the timing and circumstances, are variable depending upon the specifics of your emergency department visit. If you don't have a primary care physician on staff, we will provide you with a referral. We always advise you to contact your personal physician following an emergency department visit to inform them of the circumstance of the visit and for follow-up with them and/or the need for any referrals to a consulting specialist. The emergency department will also refer you to a specialist when appropriate. This referral assures that you have the opportunity for follow-up care with a specialist. All of these measure are taken in an effort to provide you with optimal care, which includes your follow-up. Under all circumstances we always encourage you to contact your private physician who remains a resource for coordinating your care. When calling for follow-up care, please make the office aware that this follow-up is from your recent emergency room visit. If for any reason you are refused follow-up, please contact the [facility] at and asked to speak to the emergency department charge nurse. [facility] [address] [place] [address] [facility] [address] [place] [address] Sepsis Event Note (ED) - Evaluation Sepsis Screening Result: No Definite Risk - Focused Exam Vital Signs: Vital Signs Temp Pulse Resp BP Pulse Ox 03/20/21 13:34 97.7 F 55 L 16 119/76 99 - My Orders Last 24 Hours: My Active Orders 03/20/21 13:48 EKG Documentation Completion [RC] AM Sodium Chloride 0.9% [Saline Flush] 10 ml FLUSH ASDIRECTED PRN Sodium Chloride 0.9% [Saline Flush] 2.5 ml FLUSH ASDIRECTED PRN Saline Lock Insert [OM.PC] Stat - Assessment/Plan Last 24 Hours: My Active Orders 03/20/21 13:48 EKG Documentation Completion [RC] AM Sodium Chloride 0.9% [Saline Flush] 10 ml FLUSH ASDIRECTED PRN Sodium Chloride 0.9% [Saline Flush] 2.5 ml FLUSH ASDIRECTED PRN Saline Lock Insert [OM.PC] Stat
== END 2021-03-20 15:26 | disposition home or self-care (01) ==
LOC: MW.ED 12:47
DX: R07.2 Precordial pain (principal); R07.89 Other chest pain
CPT/HCPCS: 36415; 71046; 80053; 84484; 85025; 85379; 93005; 96374; 99285; J1885